=== PATIENT | female | born 1935 | race Caucasian/White ===

== ENCOUNTER 2017-06-23 22:13 | Emergency (ER) | payer MEDICARE, MEDICAID ==
[~2017-06-23] VITALS: Ht 160 cm; Wt 86.0 kg
[~2017-06-23 22:13] MED LIST: ACETIC ACID 2% LEFT EAR; ALPR-392 PO; ASPI-1159 PO; AZOR; CETI-101 PO; CULTURELLE PO; FLUT1DIS3 INH; INVANZ IV; MONT10TA21 PO; NITR0.4T49 SL; PANT40TA4 PO; PHEN100C12 PO; PHEN100C4 PO; WARF5TAB73 PO
[2017-06-23] MEDS ORDERED: KETOROLAC 30MG/ML VIAL IV STA (22:58)
[2017-06-23] MEDS ORDERED: ONDANSETRON HCL 4MG/2ML VIAL IV STA (22:58)
[2017-06-23 23:26] LABS: CHLORIDE 107 mEq/L (98-107); HEMATOCRIT. 34.3 % (36.0-48.0); HEMOGLOBIN. 12.2 g/dL (12.0-16.0); MEAN CORPUSCULAR HEMOGLOBIN 32.7 pg (28.0-32.0); MEAN CORPUSCULAR VOLUME 91.9 fL (81.0-99.0); MEAN PLATELET VOLUME 9.4 fl (7.4-10.4); PLATELET 103 x1000/uL (130-400); RED BLOOD CELL COUNT 3.73 mill/uL (4.2-5.4)
[2017-06-23 23:32] LABS: CARBON DIOXIDE 22 mEq/L (21-32)
[2017-06-24 05:08] LABS: GLUCOSE URINE NEGATIVE (NEGATIVE); KETONES URINE NEGATIVE (NEGATIVE); LEUKOCYTE ESTERASE URINE 3+ (NEGATIVE); NITRITE URINE NEGATIVE (NEGATIVE); OCCULT BLOOD URINE 2+ (NEGATIVE); PH URINE 5.5 (4.5-8.0); PROTEIN URINE NEGATIVE (NEGATIVE); SPECIFIC GRAVITY URINE 1.017 (1.005-1.030); UROBILINOGEN URINE 0.2 E.U./dL (0.2-1.0)
[2017-06-24 05:09] LABS: CLARITY URINE CLOUDY (CLEAR); COLOR URINE YELLOW (YELLOW)
[2017-06-24 05:52] VITALS: BP 95/55
[2017-06-24 06:53] LABS: PLATELET ESTIMATE SLIGHTLY DECREASED
== END 2017-06-24 06:11 | disposition home or self-care (01) ==
LOC: ER 22:21
DX: M25.561 Pain in right knee (principal); K74.60 Unspecified cirrhosis of liver; I10 Essential (primary) hypertension; R56.9 Unspecified convulsions; J45.909 Unspecified asthma, uncomplicated; Z88.0 Allergy status to penicillin; Z79.01 Long term (current) use of anticoagulants; Z79.82 Long term (current) use of aspirin; Z90.49 Acquired absence of other specified parts of digestive tract; Z90.710 Acquired absence of both cervix and uterus; Z98.890 Other specified postprocedural states; W19.XXXA Unspecified fall, initial encounter; Y93.89 Activity, other specified; Y99.8 Other external cause status; Y92.89 Other specified places as the place of occurrence of the external cause
CPT/HCPCS: 36415; 71010; 72170; 73560; 73610; 80048; 81001; 85025; 93005; 96374; 96375; 99285; J1885; J2405

== ENCOUNTER 2020-06-19 17:50 | Inpatient (IN) | payer MEDICARE, OTHER ==
[~2020-06-19] VITALS: Ht 142.2 cm; Wt 78.0 kg
[~2020-06-19 17:50] MED LIST changes: -ACETIC ACID 2% LEFT EAR; +AMLO1TAB33 MT; -ASPI-1159 PO; -AZOR; -CETI-101 PO; -CULTURELLE PO; -INVANZ IV; +LACT10SO6 MT; +LORA10TA7 PO; -PHEN100C4 PO; +RIVA10TA PO; +URSO250T11 PO; -WARF5TAB73 PO
[2020-06-19 18:46] VITALS: BP 128/49
[2020-06-19 19:00] VITALS: BP 126/54
[2020-06-19] MEDS ORDERED: SENNOSIDES/DOCUSATE SOD 8.6/50MG TABLET PO PRN (19:30)
[2020-06-19] MEDS ORDERED: NA PHOS,M-B/NA PHOS,DI-BA ENEMA 118ML PR PRN (19:30)
[2020-06-19] MEDS ORDERED: ONDANSETRON HCL 4MG/2ML INJ IV PRN (19:30)
[2020-06-19 20:00] VITALS: BP 126/54
[2020-06-19] MEDS: LORATADINE 10MG TABLET PO SCH (21:01)
[2020-06-19] MEDS: FLUTICASONE PROPIONATE 50MCG/SPRAY BOTTLE BOTHNSTRLS SCH (21:01)
[2020-06-19] MEDS: PHENYTOIN SODIUM EXTENDED 100MG CAPSULE PO SCH (21:01)
[2020-06-19] MEDS: IBUPROFEN 200MG TABLET PO PRN (21:02)
[2020-06-20 01:42] VITALS: BP 136/57
[2020-06-20] MEDS: IBUPROFEN 200MG TABLET PO PRN ×3 (03:04→21:19)
[2020-06-20] MEDS: PHENYTOIN SODIUM EXTENDED 100MG CAPSULE PO SCH ×3 (06:01→21:14)
[2020-06-20] MEDS: PANTOPRAZOLE 40MG DR TABLET PO SCH (06:01)
[2020-06-20 08:00] VITALS: BP 114/42
[2020-06-20] MEDS: [UNRECOGNIZED DRUG - REMARK] ORI SCH ×2 (09:34→16:38)
[2020-06-20] MEDS: FLUTICASONE PROPIONATE 50MCG/SPRAY BOTTLE BOTHNSTRLS SCH ×2 (09:34→21:14)
[2020-06-20] MEDS: AMLODIPINE 5MG TABLET PO SCH (09:35)
[2020-06-20] MEDS: CHOLECALCIFEROL (D3) 1000 UNIT TABLET PO SCH (09:35)
[2020-06-20] MEDS: LOSARTAN POTASSIUM 100 MG TABLET PO SCH (09:35)
[2020-06-20] MEDS: DOCUSATE SODIUM 100MG CAPSULE PO SCH ×2 (09:35→16:37)
[2020-06-20] MEDS: LIDOCAINE 5% PATCH TOP PRN (09:37)
[2020-06-20 12:00] VITALS: BP 122/41
[2020-06-20] MEDS ORDERED: NON FORMULARY PATIENT HOME MED XX SCH (14:00)
[2020-06-20 15:55] VITALS: BP 132/53
[2020-06-20 16:28] LABS: CLARITY URINE CLOUDY (CLEAR); COLOR URINE YELLOW (YELLOW); KETONES URINE NEGATIVE (NEGATIVE); LEUKOCYTE ESTERASE URINE 2+ (NEGATIVE); NITRITE URINE NEGATIVE (NEGATIVE); OCCULT BLOOD URINE NEGATIVE (NEGATIVE); PH URINE 6.5 (4.5-8.0); PROTEIN URINE NEGATIVE (NEGATIVE); SPECIFIC GRAVITY URINE 1.017 (1.005-1.030); UROBILINOGEN URINE 0.2 E.U./dL (0.2-1.0)
[2020-06-20] MEDS: MONTELUKAST SODIUM 10MG TABLET PO SCH (16:38)
[2020-06-20] MEDS: LINZESS 290 MG PO SCH (16:38)
[2020-06-20] MEDS: RIVAROXABAN 10 MG TABLET PO SCH (16:39)
[2020-06-20] MEDS ORDERED: SIMETHICONE 80MG TABLET CHEW PO PRN (18:30)
[2020-06-20] MEDS ORDERED: CALCIUM CARBONATE 500MG TABLET CHEW PO PRN (18:30)
[2020-06-20 20:00] VITALS: BP 126/61
[2020-06-20] MEDS: LORATADINE 10MG TABLET PO SCH (21:14)
[2020-06-20] MEDS: LACTULOSE 20G/30ML UDC PO SCH (21:14)
[2020-06-21] MEDS: IBUPROFEN 200MG TABLET PO PRN ×2 (03:25→12:51)
[2020-06-21] MEDS: PHENYTOIN SODIUM EXTENDED 100MG CAPSULE PO SCH ×3 (06:09→21:17)
[2020-06-21] MEDS: LACTULOSE 20G/30ML UDC PO SCH ×2 (06:09→13:53)
[2020-06-21] MEDS: PANTOPRAZOLE 40MG DR TABLET PO SCH (06:09)
[2020-06-21] MEDS: LIDOCAINE 5% PATCH TOP PRN (06:19)
[2020-06-21 08:00] VITALS: BP 135/60
[2020-06-21] MEDS: ACETAMINOPHEN 325MG TABLET PO PRN ×2 (08:35→23:57)
[2020-06-21] MEDS: CHOLECALCIFEROL (D3) 1000 UNIT TABLET PO SCH (09:00)
[2020-06-21] MEDS: DOCUSATE SODIUM 100MG CAPSULE PO SCH (10:24)
[2020-06-21] MEDS: AMLODIPINE 5MG TABLET PO SCH (10:24)
[2020-06-21] MEDS: LOSARTAN POTASSIUM 100 MG TABLET PO SCH (10:24)
[2020-06-21] MEDS: LINZESS 290 MG PO SCH (10:31)
[2020-06-21] MEDS: [UNRECOGNIZED DRUG - REMARK] ORI SCH ×2 (10:32→18:11)
[2020-06-21] MEDS: FLUTICASONE PROPIONATE 50MCG/SPRAY BOTTLE BOTHNSTRLS SCH ×2 (10:32→21:00)
[2020-06-21 12:00] VITALS: BP 132/64
[2020-06-21 16:27] VITALS: BP 134/62
[2020-06-21] MEDS: RIVAROXABAN 10 MG TABLET PO SCH (18:11)
[2020-06-21] MEDS: MONTELUKAST SODIUM 10MG TABLET PO SCH (18:11)
[2020-06-21 20:00] VITALS: BP 120/45
[2020-06-21] MEDS ORDERED: LEVOFLOXACIN 500MG TABLET PO SCH (21:00)
[2020-06-21] MEDS: LORATADINE 10MG TABLET PO SCH (21:18)
[2020-06-22] MEDS: MAGNESIUM/ALUMINUM HYDROXIDE/SIMETHICONE 30ML UDC PO PRN ×2 (00:01→23:57)
[2020-06-22] MEDS: PHENYTOIN SODIUM EXTENDED 100MG CAPSULE PO SCH ×4 (06:38→23:48)
[2020-06-22] MEDS: PANTOPRAZOLE 40MG DR TABLET PO SCH (06:38)
[2020-06-22 08:00] VITALS: BP 135/42
[2020-06-22] MEDS ORDERED: FAMOTIDINE 20MG TABLET PO SCH (09:00)
[2020-06-22] MEDS ORDERED: LACTULOSE 20G/30ML UDC PO SCH (09:00)
[2020-06-22] MEDS: FLUTICASONE PROPIONATE 50MCG/SPRAY BOTTLE BOTHNSTRLS SCH (09:01)
[2020-06-22] MEDS: CHOLECALCIFEROL (D3) 1000 UNIT TABLET PO SCH (09:01)
[2020-06-22] MEDS: LOSARTAN POTASSIUM 100 MG TABLET PO SCH (09:01)
[2020-06-22] MEDS: LINZESS 290 MG PO SCH (09:02)
[2020-06-22] MEDS: AMLODIPINE 5MG TABLET PO SCH (09:02)
[2020-06-22] MEDS: [UNRECOGNIZED DRUG - REMARK] ORI SCH ×2 (09:03→17:16)
[2020-06-22] MEDS: LEVOFLOXACIN 250MG TABLET PO SCH ×2 (10:13→11:00)
[2020-06-22] MEDS: TRAMADOL 50MG TABLET PO PRN (10:13)
[2020-06-22] MEDS ORDERED: LIDOCAINE 5% PATCH TOP PRN (13:00)
[2020-06-22] MEDS ORDERED: IBUPROFEN 400MG TABLET PO PRN (13:00)
[2020-06-22 16:59] LABS: CHLORIDE 108 mEq/L (98-107)
[2020-06-22 17:11] LABS: BASOPHILS % 0.5 % (0.0-2.0); EOSINOPHILS % 5.7 % (0.0-5.0); HEMATOCRIT. 32.5 % (36.0-48.0); HEMOGLOBIN. 11.6 g/dL (12.0-16.0); LYMPHOCYTES % 23.9 % (20.0-50.0); MEAN CORPUSCULAR VOLUME 95.6 fL (81.0-99.0); MEAN PLATELET VOLUME 9.7 fl (7.4-10.4); MONOCYTES % 12.8 % (2.0-8.0); NEUTROPHILS % 57.1 % (40.0-76.0); PLATELET 126 x1000/uL (130-400); RED CELL DISTRIBUTION WIDTH 14.4 % (11.6-14.6)
[2020-06-22] MEDS: RIVAROXABAN 10 MG TABLET PO SCH (17:16)
[2020-06-22] MEDS: MONTELUKAST SODIUM 10MG TABLET PO SCH (17:16)
[2020-06-22] MEDS ORDERED: CEPHALEXIN 250MG CAPSULE PO SCH (18:00)
[2020-06-22 20:00] VITALS: BP 100/34
[2020-06-22] MEDS ORDERED: ALPRAZOLAM 0.25 MG TABLET PO SCH (22:00)
[2020-06-22] MEDS ORDERED: LORATADINE 10MG TABLET PO PRN (23:00)
[2020-06-23] MEDS: ALBUTEROL (0.083%) 2.5MG/3ML NEB HHN SCH ×3 (00:37→13:43)
[2020-06-23] MEDS: PANTOPRAZOLE 40MG DR TABLET PO SCH (06:08)
[2020-06-23 06:30] LABS: BASOPHILS % 0.6 % (0.0-2.0); EOSINOPHILS % 6.9 % (0.0-5.0); HEMATOCRIT. 32.8 % (36.0-48.0); HEMOGLOBIN. 11.5 g/dL (12.0-16.0); LYMPHOCYTES % 31.5 % (20.0-50.0); MEAN CORPUSCULAR HEMOGLOBIN 33.7 pg (28.0-32.0); MEAN CORPUSCULAR VOLUME 96.2 fL (81.0-99.0); MEAN PLATELET VOLUME 9.7 fl (7.4-10.4); MONOCYTES % 12.7 % (2.0-8.0); NEUTROPHILS % 48.3 % (40.0-76.0); PLATELET 132 x1000/uL (130-400); RED BLOOD CELL COUNT 3.41 mill/uL (4.2-5.4); RED CELL DISTRIBUTION WIDTH 14.1 % (11.6-14.6)
[2020-06-23] MEDS: TRAMADOL 50MG TABLET PO PRN (06:49)
[2020-06-23 07:22] LABS: CHLORIDE 107 mEq/L (98-107)
[2020-06-23 07:30] VITALS: BP 126/56
[2020-06-23] MEDS ORDERED: URSODIOL 300MG CAPSULE PO SCH (09:00)
[2020-06-23] MEDS ORDERED: NITROFURANTOIN 100MG M/M CAPSULE PO SCH (09:00)
[2020-06-23] MEDS: [UNRECOGNIZED DRUG - REMARK] ORI SCH (09:13)
[2020-06-23] MEDS: LINZESS 290 MG PO SCH (09:13)
[2020-06-23] MEDS: CHOLECALCIFEROL (D3) 1000 UNIT TABLET PO SCH (09:13)
[2020-06-23] MEDS: LOSARTAN POTASSIUM 100 MG TABLET PO SCH (09:13)
[2020-06-23] MEDS: PHENYTOIN SODIUM EXTENDED 100MG CAPSULE PO SCH ×2 (09:14→13:03)
[2020-06-23] MEDS: AMLODIPINE 5MG TABLET PO SCH (09:14)
[2020-06-23 13:00] VITALS: BP 108/52
[2020-06-23] MEDS ORDERED: LACTULOSE 20G/30ML UDC PO SCH (13:00)
[2020-06-23] MEDS ORDERED: IBUPROFEN 200MG TABLET PO SCH (13:00)
[2020-06-23 13:07] VITALS: BP 108/52
[2020-06-23] MEDS ORDERED: RIVAROXABAN 10 MG TABLET PO SCH (17:00)
== END 2020-06-23 16:43 | disposition left against medical advice (07) | DRG 552 ==
PROVIDERS: ADMIT Psychiatry & Neurology Neurology; ATTEND Family Medicine
DX: S32.000A Wedge compression fracture of unspecified lumbar vertebra, initial encounter for closed fracture (principal); E44.1 Mild protein-calorie malnutrition; E66.9 Obesity, unspecified; M81.0 Age-related osteoporosis without current pathological fracture; W19.XXXA Unspecified fall, initial encounter; E11.9 Type 2 diabetes mellitus without complications; I10 Essential (primary) hypertension; Z87.11 Personal history of peptic ulcer disease; K74.3 Primary biliary cirrhosis; D64.9 Anemia, unspecified; R53.81 Other malaise; K59.00 Constipation, unspecified
CPT/HCPCS: 36415; 71045; 74176; 80048; 80053; 81003; 82962; 84484; 85025; 87077; 87186; 93005; 94640; 97110; 97162; 97166; 97530; 97535

== ENCOUNTER 2021-07-16 12:07 | Inpatient (IN) | payer MEDICARE, MEDICAID ==
[~2021-07-16] VITALS: Ht 152.4 cm; Wt 78.5 kg
[~2021-07-16 12:07] MED LIST changes: -PANT40TA4 PO; +PANT40TA51 PO; -URSO250T11 PO; +URSO250T12 PO
[2021-07-16] MEDS ORDERED: SODIUM CHLORIDE 0.9% 500 ML IV ONE (13:00)
[2021-07-16] MEDS ORDERED: MORPHINE SULFATE 2 MG/ML CPJ (NOT FOR IM USE) IV NR (14:00)
[2021-07-16 15:07] LABS: BASOPHILS % 0.7 % (0.0-2.0); EOSINOPHILS % 1.2 % (0.0-5.0); HEMATOCRIT. 33.9 % (36.0-48.0); HEMOGLOBIN. 12.2 g/dL (12.0-16.0); LYMPHOCYTES % 25.6 % (20.0-50.0); MEAN CORPUSCULAR HEMOGLOBIN 34.5 pg (28.0-32.0); MEAN CORPUSCULAR VOLUME 96.2 fL (81.0-99.0); MEAN PLATELET VOLUME 10.4 fl (7.4-10.4); MONOCYTES % 9.2 % (2.0-8.0); NEUTROPHILS % 63.3 % (40.0-76.0); PLATELET 108 x1000/uL (130-400); RED BLOOD CELL COUNT 3.53 mill/uL (4.2-5.4); RED CELL DISTRIBUTION WIDTH 14.1 % (11.6-14.6)
[2021-07-16 15:15] LABS: CHLORIDE 113 mEq/L (98-107)
[2021-07-16 15:17] LABS: INR 1.2
[2021-07-16] MEDS ORDERED: HYDROMORPHONE HCL/PF 2MG/ML CPJ IV NR (16:15)
[2021-07-16] MEDS ORDERED: MORPHINE SULFATE 4 MG/ML CPJ (NOT FOR IM USE) IV NR (16:15)
[2021-07-16] MEDS ORDERED: CLONIDINE 0.1MG TABLET PO PRN (22:45)
[2021-07-16] MEDS ORDERED: ACETAMINOPHEN 325MG TABLET PO PRN (22:45)
[2021-07-16] MEDS ORDERED: MAGNESIUM/ALUMINUM HYDROXIDE/SIMETHICONE 30ML UDC PO PRN (22:45)
[2021-07-16] MEDS ORDERED: DOCUSATE SODIUM 100MG CAPSULE PO PRN (22:45)
[2021-07-16] MEDS ORDERED: NALOXONE HCL 0.4MG/ML VIAL IV PRN (23:00)
[2021-07-16] MEDS ORDERED: ALPRAZOLAM 0.25 MG TABLET PO PRN (23:00)
[2021-07-16 23:58] VITALS: BP 153/92
[2021-07-17] MEDS: MONTELUKAST SODIUM 10MG TABLET PO SCH ×2 (01:10→08:37)
[2021-07-17] MEDS: PANTOPRAZOLE 40MG DR TABLET PO SCH ×2 (01:10→06:31)
[2021-07-17] MEDS: AMLODIPINE 10MG TABLET PO SCH ×2 (01:11→08:37)
[2021-07-17] MEDS ORDERED: IPRATROPIUM/ALBUTEROL 0.5-3(2.5)MG/3ML NEB HHN PRN (04:15)
[2021-07-17] MEDS: HYDROMORPHONE HCL/PF 2MG/ML CPJ IV PRN ×2 (06:31→19:23)
[2021-07-17 08:00] VITALS: BP 131/63
[2021-07-17] MEDS: PHENYTOIN SODIUM EXTENDED 100MG CAPSULE PO SCH ×4 (08:37→14:45)
[2021-07-17] MEDS: RIVAROXABAN 10 MG TABLET PO SCH (08:37)
[2021-07-17 08:49] LABS: BASOPHILS % 0.6 % (0.0-2.0); EOSINOPHILS % 5.9 % (0.0-5.0); HEMATOCRIT. 34.4 % (36.0-48.0); LYMPHOCYTES % 34.1 % (20.0-50.0); MEAN CORPUSCULAR VOLUME 97.3 fL (81.0-99.0); MEAN PLATELET VOLUME 10.2 fl (7.4-10.4); MONOCYTES % 9.7 % (2.0-8.0); NEUTROPHILS % 49.7 % (40.0-76.0); PLATELET 110 x1000/uL (130-400); RED BLOOD CELL COUNT 3.54 mill/uL (4.2-5.4); RED CELL DISTRIBUTION WIDTH 14.1 % (11.6-14.6)
[2021-07-17 09:08] LABS: CHLORIDE 110 mEq/L (98-107)
[2021-07-17 12:00] VITALS: BP 143/70
[2021-07-17] MEDS: ONDANSETRON HCL 4MG/2ML INJ IV PRN ×2 (14:45→20:18)
[2021-07-17] MEDS ORDERED: BUME2TAB7 MT (15:45)
[2021-07-17] MEDS ORDERED: RIVA10TA PO (15:46)
[2021-07-17] MEDS ORDERED: MECL-159 PO (15:47)
[2021-07-17] MEDS ORDERED: LORA10TA7 PO (15:48)
[2021-07-17] MEDS ORDERED: PANT40TA51 PO (15:48)
[2021-07-17] MEDS ORDERED: NITR0.4T49 SL (15:49)
[2021-07-17] MEDS ORDERED: ASPI-1406 PO (15:50)
[2021-07-17] MEDS ORDERED: OXYC-662 GT (15:51)
[2021-07-17] MEDS ORDERED: FLUT1DIS3 IH (15:52)
[2021-07-17 16:00] VITALS: BP 115/61
[2021-07-17 20:00] VITALS: BP 108/46
[2021-07-17 23:31] LABS: CLARITY URINE TURBID (CLEAR); COLOR URINE YELLOW (YELLOW); KETONES URINE NEGATIVE (NEGATIVE); LEUKOCYTE ESTERASE URINE 2+ (NEGATIVE); NITRITE URINE NEGATIVE (NEGATIVE); OCCULT BLOOD URINE NEGATIVE (NEGATIVE); PROTEIN URINE TRACE (NEGATIVE); SPECIFIC GRAVITY URINE 1.015 (1.005-1.030)
[2021-07-18] VITALS: BP 122/51
[2021-07-18 04:00] VITALS: BP 150/64
[2021-07-18] MEDS: PANTOPRAZOLE 40MG DR TABLET PO SCH (06:35)
[2021-07-18] MEDS: HYDROMORPHONE HCL/PF 2MG/ML CPJ IV PRN ×2 (06:38→18:45)
[2021-07-18 08:00] VITALS: BP 125/50
[2021-07-18] MEDS: RIVAROXABAN 10 MG TABLET PO SCH (09:29)
[2021-07-18] MEDS: MONTELUKAST SODIUM 10MG TABLET PO SCH (09:30)
[2021-07-18] MEDS: AMLODIPINE 10MG TABLET PO SCH (09:30)
[2021-07-18] MEDS: NITROFURANTOIN 100MG M/M CAPSULE PO SCH ×2 (11:28→21:04)
[2021-07-18 12:00] VITALS: BP 102/63
[2021-07-18] MEDS: PHENYTOIN SODIUM EXTENDED 100MG CAPSULE PO SCH ×2 (14:48→17:45)
[2021-07-18 16:00] VITALS: BP 127/57
[2021-07-18 20:00] VITALS: BP 109/43
[2021-07-19] VITALS: BP 134/54
[2021-07-19] MEDS: HYDROMORPHONE HCL/PF 2MG/ML CPJ IV PRN ×3 (01:31→21:12)
[2021-07-19 04:00] VITALS: BP 122/62
[2021-07-19] MEDS: PANTOPRAZOLE 40MG DR TABLET PO SCH (06:29)
[2021-07-19 07:40] VITALS: BP 147/66
[2021-07-19] MEDS: MONTELUKAST SODIUM 10MG TABLET PO SCH (08:24)
[2021-07-19] MEDS: RIVAROXABAN 10 MG TABLET PO SCH (08:24)
[2021-07-19] MEDS: NITROFURANTOIN 100MG M/M CAPSULE PO SCH ×2 (08:24→21:11)
[2021-07-19] MEDS: AMLODIPINE 10MG TABLET PO SCH (08:24)
[2021-07-19] MEDS: PHENYTOIN SODIUM EXTENDED 100MG CAPSULE PO SCH ×3 (08:24→17:48)
[2021-07-19] MEDS: ONDANSETRON HCL 4MG/2ML INJ IV PRN ×2 (11:26→21:13)
[2021-07-19 12:00] VITALS: BP 116/51
[2021-07-19] MEDS: IPRATROPIUM/ALBUTEROL 0.5-3(2.5)MG/3ML NEB HHN SCH ×2 (12:37→19:44)
[2021-07-19 16:00] VITALS: BP 119/47
[2021-07-19 20:00] VITALS: BP 120/51
[2021-07-20] VITALS: BP 121/56
[2021-07-20] MEDS: IPRATROPIUM/ALBUTEROL 0.5-3(2.5)MG/3ML NEB HHN SCH ×5 (01:26→21:33)
[2021-07-20 04:00] VITALS: BP 117/50
[2021-07-20] MEDS: PANTOPRAZOLE 40MG DR TABLET PO SCH (06:40)
[2021-07-20 08:00] VITALS: BP 129/64
[2021-07-20] MEDS: NITROFURANTOIN 100MG M/M CAPSULE PO SCH (11:10)
[2021-07-20] MEDS: MONTELUKAST SODIUM 10MG TABLET PO SCH (11:10)
[2021-07-20] MEDS: AMLODIPINE 10MG TABLET PO SCH (11:10)
[2021-07-20] MEDS: RIVAROXABAN 10 MG TABLET PO SCH (11:10)
[2021-07-20] MEDS: PHENYTOIN SODIUM EXTENDED 100MG CAPSULE PO SCH ×3 (11:10→17:24)
[2021-07-20 12:00] VITALS: BP 119/61
[2021-07-20 16:00] VITALS: BP 99/43
[2021-07-20 20:00] VITALS: BP 127/84
[2021-07-20] MEDS: ADVAIR ORI SCH (23:33)
[2021-07-21] VITALS: BP 114/45
[2021-07-21] MEDS: IPRATROPIUM/ALBUTEROL 0.5-3(2.5)MG/3ML NEB HHN SCH ×3 (02:32→14:10)
[2021-07-21 04:00] VITALS: BP 108/43
[2021-07-21] MEDS: PANTOPRAZOLE 40MG DR TABLET PO SCH (06:32)
[2021-07-21 08:22] VITALS: BP 105/47
[2021-07-21] MEDS: AMLODIPINE 10MG TABLET PO SCH (08:32)
[2021-07-21] MEDS: ADVAIR ORI SCH (09:39)
[2021-07-21] MEDS: RIVAROXABAN 10 MG TABLET PO SCH (09:39)
[2021-07-21] MEDS: PHENYTOIN SODIUM EXTENDED 100MG CAPSULE PO SCH ×3 (09:39→17:00)
[2021-07-21] MEDS: MONTELUKAST SODIUM 10MG TABLET PO SCH (09:39)
[2021-07-21 11:56] VITALS: BP 121/60
[2021-07-21] MEDS: LIDOCAINE 5% PATCH TOP SCH ×2 (12:30→13:17)
[2021-07-21 14:33] VITALS: BP 121/60
[2021-07-21 16:05] VITALS: BP 118/61
== END 2021-07-21 17:57 | disposition home or self-care (01) | DRG 552 ==
LOC: ER 12:07 → MICUSO 17:03 → 6WST 22:31
PROVIDERS: ADMIT Hospitalist; ATTEND Hospitalist
DX: M54.50 Low back pain, unspecified (principal); N39.0 Urinary tract infection, site not specified; E66.9 Obesity, unspecified; F03.90 Unspecified dementia, unspecified severity, without behavioral disturbance, psychotic disturbance, mood disturbance, and anxiety; G40.909 Epilepsy, unspecified, not intractable, without status epilepticus; K74.60 Unspecified cirrhosis of liver; R10.9 Unspecified abdominal pain; I11.0 Hypertensive heart disease with heart failure; I50.9 Heart failure, unspecified; R29.6 Repeated falls; Z88.6 Allergy status to analgesic agent; Z88.1 Allergy status to other antibiotic agents; Z91.041 Radiographic dye allergy status; Z88.0 Allergy status to penicillin; Z91.018 Allergy to other foods; Z79.01 Long term (current) use of anticoagulants; Z79.899 Other long term (current) drug therapy; Z87.81 Personal history of (healed) traumatic fracture; M48.56XD Collapsed vertebra, not elsewhere classified, lumbar region, subsequent encounter for fracture with routine healing
CPT/HCPCS: 36415; 70496; 71045; 74176; 80053; 80185; 81003; 83605; 83880; 84484; 85025; 86850; 86900; 93005; 93970; 94640; 97162; 97530; 99285; C1893; J1170; J2270; J2405; J7030

== ENCOUNTER 2024-01-22 04:56 | Inpatient (IN) | payer MEDICARE, MEDICAID ==
[~2024-01-22] VITALS: Ht 162.6 cm; Wt 71.8 kg
[~2024-01-22 04:56] MED LIST changes: +ASPI-1406 PO; +BUME2TAB7 MT; +DOCU-150 PO; +DONE-51 PO; +FLUT16SP15 BOTHNSTRLS; +FURO20TA4 PO; +GABA-529 PO; +LINA145C PO; +MEMA5TAB42 PO; +METO2.5T2 PO; +MONT-46 PO; -MONT10TA21 PO; -NITR0.4T49 SL; +POTA-202 PO; +PRIM50TA5 PO; +RIFA550T PO; +SENN-257 PO
[2024-01-22 06:01] LABS: CHLORIDE 106 mEq/L (98-107); POTASSIUM 3.6 mEq/L (3.5-5.1); SODIUM 137 mEq/L (136-145)
[2024-01-22 06:03] LABS: CARBON DIOXIDE 26 mEq/L (21-32); CREATININE 0.3 mg/dL (0.6-1.0); GLUCOSE 143 mg/dL (70-105); UREA NITROGEN BLOOD 6 mg/dL (9-23)
[2024-01-22] MEDS: ASPIRIN 81MG TABLET PO ONE (06:03)
[2024-01-22 06:04] LABS: TROPONIN I HIGH SENSITIVITY 15 ng/L (3.0-34)
[2024-01-22 07:05] LABS: INR 1.2; PROTHROMBIN TIME 13.5 sec (9.6-11.0)
[2024-01-22 07:10] LABS: BASOPHILS % 0.4 % (0.0-2.0); DIFFERENTIAL COMMENT 0; EOSINOPHILS % 0.8 % (0.0-5.0); HEMATOCRIT. 27.8 % (36.0-48.0); HEMOGLOBIN. 9.8 g/dL (12.0-16.0); LYMPHOCYTES % 16.3 % (20.0-50.0); MEAN CORPUSCULAR VOLUME 104.5 fL (81.0-99.0); MONOCYTES % 7.8 % (2.0-8.0); NEUTROPHILS % 74.7 % (40.0-76.0); PLATELET 129 x1000/uL (130-400); RED BLOOD CELL COUNT 2.65 mill/uL (4.2-5.4); RED CELL DISTRIBUTION WIDTH 15.3 % (11.6-14.6); WHITE BLOOD COUNT 3.3 x1000/uL (4.5-11.0)
[2024-01-22 07:21] LABS: MEAN CORPUSCULAR HGB CONC 35.4 g/dL (31.0-37.0)
[2024-01-22 10:40] LABS: TROPONIN I HIGH SENSITIVITY 20 ng/L (3.0-34)
[2024-01-22] MEDS ORDERED: CLONIDINE 0.1MG TABLET PO PRN (12:45)
[2024-01-22] MEDS ORDERED: ACETAMINOPHEN 325MG TABLET PO PRN (12:45)
[2024-01-22] MEDS ORDERED: IPRATROPIUM/ALBUTEROL 0.5-3(2.5)MG/3ML NEB HHN PRN (12:45)
[2024-01-22] MEDS ORDERED: DIPHENHYDRAMINE 50MG/ML VIAL IV PRN (12:45)
[2024-01-22] MEDS ORDERED: ZOLPIDEM TARTRATE 5MG TABLET PO PRN (12:45)
[2024-01-22] MEDS ORDERED: GUAIFENESIN 200MG/10ML SUGAR FREE UDC PO PRN (12:45)
[2024-01-22] MEDS ORDERED: MAGNESIUM/ALUMINUM HYDROXIDE/SIMETHICONE 30ML UDC PO PRN (12:45)
[2024-01-22] MEDS ORDERED: ONDANSETRON HCL 4MG/2ML INJ IV PRN (12:45)
[2024-01-22] MEDS: FUROSEMIDE 40MG/4ML VIAL IVP SCH (13:59)
[2024-01-22 16:00] VITALS: BP 121/69; PULSE 71; RESP 17; TEMP 98.7
[2024-01-22 16:50] LABS: PHENYTOIN 11.8 ug/mL (10-20)
[2024-01-22 16:51] LABS: AMMONIA 72 uMol/L (<32)
[2024-01-22] MEDS: SODIUM CHLORIDE 0.9% INJ 3ML FLUSH IVF SCH (17:43)
[2024-01-22 20:15] VITALS: BP 134/57; PULSE 69; RESP 15; TEMP 98.1
[2024-01-22] MEDS ORDERED: ENOXAPARIN 30MG/0.3ML SYR SUBCUT SCH (21:00)
[2024-01-22] MEDS: FUROSEMIDE 40MG TABLET PO SCH (21:00)
[2024-01-22] MEDS: PHENYTOIN SODIUM EXTENDED 100MG CAPSULE PO SCH (22:57)
[2024-01-22] MEDS: PANTOPRAZOLE 40MG DR TABLET PO SCH (22:57)
[2024-01-22] MEDS: LACTULOSE 20G/30ML UDC PO SCH (22:58)
[2024-01-23 00:01] VITALS: BP 140/127; PULSE 77; RESP 18; TEMP 97.6
[2024-01-23 04:53] VITALS: BP 116/55; PULSE 65; RESP 16; TEMP 97.3
[2024-01-23 08:00] VITALS: BP 120/43; PULSE 67; RESP 14; TEMP 97.4
[2024-01-23 09:17] LABS: AMMONIA 73 uMol/L (<32)
[2024-01-23 12:00] VITALS: BP 89/37; PULSE 65; RESP 16; TEMP 97.9
[2024-01-23 16:00] VITALS: BP 101/46; PULSE 70; RESP 12; TEMP 98.2
[2024-01-23 20:00] VITALS: BP 97/45; PULSE 77; RESP 17; TEMP 98.6
[2024-01-23] MEDS: ACETAMINOPHEN 325MG TABLET PO PRN (23:00)
[2024-01-24] VITALS: BP 115/64; PULSE 86; RESP 15; TEMP 97.6
[2024-01-24 04:00] VITALS: BP 114/43; PULSE 66; RESP 15; TEMP 98.3
[2024-01-24 08:36] VITALS: BP 98/47; PULSE 86; RESP 13; TEMP 98
[2024-01-24 11:18] VITALS: BP 98/47; PULSE 86; TEMP 98; O2SAT 96
[2024-01-24] MEDS: RIFAXIMIN 550 MG TABLET PO SCH (11:57)
[2024-01-24 12:00] VITALS: BP 99/38; PULSE 69; RESP 20; TEMP 98.3
[2024-01-24 17:06] VITALS: BP 117/44; PULSE 74; RESP 20; TEMP 97
== END 2024-01-24 17:28 | disposition home or self-care (01) | DRG 291 ==
LOC: ER 04:56 → EDBEDREQ 05:31 → 5WST 06:13 → EDBEDREQ 06:21 → 3WST 15:03
PROVIDERS: ADMIT Internal Medicine; ATTEND Internal Medicine
DX: I11.0 Hypertensive heart disease with heart failure (principal); I50.21 Acute systolic (congestive) heart failure; J96.01 Acute respiratory failure with hypoxia; J98.11 Atelectasis; R07.89 Other chest pain; J44.9 Chronic obstructive pulmonary disease, unspecified; K74.60 Unspecified cirrhosis of liver; F03.90 Unspecified dementia, unspecified severity, without behavioral disturbance, psychotic disturbance, mood disturbance, and anxiety; G40.909 Epilepsy, unspecified, not intractable, without status epilepticus; Z99.81 Dependence on supplemental oxygen; Z86.16 Personal history of COVID-19; Z86.73 Personal history of transient ischemic attack (TIA), and cerebral infarction without residual deficits; Z88.0 Allergy status to penicillin; Z88.5 Allergy status to narcotic agent; Z88.1 Allergy status to other antibiotic agents; Z88.8 Allergy status to other drugs, medicaments and biological substances
CPT/HCPCS: 36415; 71045; 80048; 80185; 82140; 83880; 84484; 85025; 93005; 93306; 99285; A6261; C1893; J1940